=== PATIENT | male | born 1950 | race Caucasian/White ===

== ENCOUNTER 2025-02-07 10:10 | Outpatient (CLI) | payer MEDICARE, BC ==
[2025-02-07 10:43] LABS: Hematocrit 46.0 % (38.8-50.0); Hemoglobin 14.7 g/dL (13.5-17.5); Mean Corpuscular Hemoglobin 28.0 pg (27.0-33.0); Mean Corpuscular Volume 87.6 fL (81.2-95.1); Platelet Count 252 10x3/uL (150-450); Red Blood Cell (RBC) Count 5.25 10x6/uL (4.32-5.72); White Blood Cell (WBC) Count 7.45 10x3/uL (3.5-10.5)
[2025-02-07 11:22] LABS: Anion Gap 16 mmol/L (10-20); BUN (Urea Nitrogen) 21 mg/dL (8.4-25.7); Calc. Creatinine Clearance 0 mL/min (70-130); Calcium 8.6 mg/dL (7.8-10.44); Carbon Dioxide 24 mmol/L (23-31); Chloride 106 mmol/L (98-107); Glucose 98 mg/dL (83-110); Potassium 4.0 mmol/L (3.5-5.1); Sodium 142 mmol/L (136-145)
== END 2025-02-07 10:11 | disposition home or self-care (01) ==
LOC: CSHLAB 10:10
PROVIDERS: ATTEND Surgery
DX: Z01.812 Encounter for preprocedural laboratory examination (principal); D38.0 Neoplasm of uncertain behavior of larynx
CPT/HCPCS: 80048; 85027